=== PATIENT | female | born 1970 | race Caucasian/White ===

== ENCOUNTER → 2019-05-18 08:14 | Outpatient (CLI) | payer OTHER, SELFPAY ==
--- NOTE | 2019-05-18 | DI.MRI.S_ITS ---
PROCEDURE: MR PELVIS WO CON INDICATIONS: RADICULOPATHY, PAINFUL PARESTHESIA, HIP PAIN TECHNIQUE: Noncontrast axial and coronal T1 spin echo and STIR through the lumbosacral plexus region. Optional contrast may be given, followed by axial and coronal T1 spin echo with fat saturation through the sacral plexus. COMPARISON: None. FINDINGS: Image quality: Excellent. Lumbosacral plexus: Superior to the piriformis muscles, the pre-plexal structures appear normal, including the lumbosacral trunk and S1 root. Just anterior to the piriformis muscles, the sacral plexus proper demonstrates normal morphology (lumbosacral trunk, S1 to S3 nerve roots). Inferior to the piriformis muscles, the sciatic nerves appear normal. Soft tissues: The piriformis muscles appear symmetric in size. No presacral masses. Rectum appears normal in caliber and wall thickness. No pathologic free pelvic fluid. No visualized adenopathy by size criteria. Bilateral adnexal cysts are seen measures 2.2 x 2.3 cm on the left side and 1.4 x 1.6 cm in size on the right side. Bones: Marrow is normal in overall signal. Bilateral sacroiliac joints are preserved. No bony erosion or ankylosis. No fluid is seen within sacroiliac joints. IMPRESSION: 1. No gross abnormality is seen in bilateral sacral plexus. 2. Bilateral adnexal cysts as above. No pelvic free fluid. 3. Normal appearing bilateral sacroiliac joints. Dictated by: Tico Garcia M.D. on 05/18/2019 at 12:40 Approved by: Tico Garcia M.D. on 05/18/2019 at 12:55
--- NOTE | 2019-05-18 | DI.MRI.S_ITS ---
PROCEDURE: MR LUMBAR SPINE WO CON INDICATIONS: RADICULOPATHY, PAINFUL PARESTHESIA, HIP PAIN TECHNIQUE: Noncontrast sagittal T1 spin echo and T2 fast echo, sagittal STIR, axial T1 and T2 fast spin echo through the lumbar spine. In cases with scoliosis, additional coronal T2 fast spin echo may be performed. COMPARISON: None. FINDINGS: Image quality: Diagnostic, with note made of motion artifact. Alignment and Curvature: There is minimal retrolisthesis seen at the L2-L3 at L3-L4 levels. Bone Marrow: Marrow is of normal overall signal. No acute vertebral body compression fractures. Spinal Cord: Conus medullaris terminates at the T12-L1 level. Visualized cord demonstrates normal signal and size. Paraspinous Soft Tissues: No paravertebral masses. T12-L1: Normal appearance. L1-L2: No significant abnormality is seen. L2-L3: Moderate loss of disc height is seen. Loss of disc signal is seen. Moderate generalized disc bulge is seen. There is moderate bilateral neural foraminal narrowing seen, right worse than left. Moderate central canal narrowing is seen. L3-L4: The disc height and disk signal are well-preserved. Mild generalized disc bulge is seen. No significant neural foraminal or central canal narrowing can be seen. L4-L5: The disc height and disk signal are well-preserved. Moderate disc bulge is seen, which is eccentric to the right. There is a focal annular fissure seen posteriorly, as on series 2 image 4. Mild to moderate facet hypertrophy is seen. Moderate bilateral neural foraminal narrowing is seen. Mild central canal narrowing is seen. L5-S1: Normal appearance. IMPRESSION: Multiple levels of lumbar spine degenerative change are seen, which are overall most prominent at the L2-L3 and the L4-L5 levels. Dictated by: Rosalio Barth M.D. on 05/18/2019 at 10:12 Approved by: Rosalio Barth M.D. on 05/18/2019 at 10:15
--- NOTE | 2019-05-18 | DI.MRI.S_ITS ---
PROCEDURE: MR HIP LT WO CON INDICATIONS: RADICULOPATHY, PAINFUL PARESTHESIA, HIP PAIN TECHNIQUE: Noncontrast coronal T1 spin echo and STIR through the bony pelvis. Coronal and axial T2 fast spin echo with fat saturation, sagittal T1 spin echo, and oblique axial T2 fast spin echo with fat saturation through the hip. COMPARISON: [facility], MR, MR HIP RT WO CON, 05/18/2019, 8:35. FINDINGS: Image quality: Excellent. Bones and joints: Mild symmetric appearing bilateral superior hip joint space narrowing is seen. No marrow edema. No intraosseous lesions or fractures. No avascular necrosis of the femoral heads. The visualized lower lumbar spine appears normally aligned. Tendons and ligaments: There is suggestion of very low grade distal gluteus medius and minimus tendinosis at their insertions on left greater trochanter, without associated muscle atrophy. The nearby proximal iliotibial band also appears intact. The iliopsoas tendon appears intact, without adjacent bursal fluid collections or evidence for impingement syndrome. Thickened proximal left semimembranosus tendon origin at the ischial tuberosity is seen with small amount of surrounding soft tissue edema. The straight and reflected heads of the rectus femoris muscle origin appear intact, as well as the conjoint tendon. The ligamentum teres appears intact where visualized. Labrum and cartilage: The acetabular labrum appears intact in the absence of intra-articular contrast. Cartilage surface of the femoral head appears of normal thickness. The alpha angle of the femur is within normal limits at less than 55 degrees. Soft tissues: Visualized muscles demonstrate normal bulk and internal signal. Quadratus femoris muscle demonstrates no internal edema to suggest ischiofemoral impingement. The proximal sciatic neurovascular bundle appears normal adjacent to the hamstring tendons. No free pelvic fluid. Bladder wall thickness is normal. Genitourinary structures and bowel loops appear normal where visualized. IMPRESSION: 1. Mild superior left hip joint space narrowing. No marrow edema. No fracture or dislocation. No evidence of avascular necrosis. 2. Suggestion of very low-grade tendinosis and partial-thickness tear involving distal left gluteus medius and minimus tendons at their insertion on greater trochanter. 3. Tendinosis and very low-grade partial-thickness tear involving proximal left semimembranosus at its origin on ischial tuberosity. 4. No gross focal labral tear. Dictated by: Tico Garcia M.D. on 05/18/2019 at 12:24 Approved by: Tico Garcia M.D. on 05/18/2019 at 12:39
--- NOTE | 2019-05-18 | DI.MRI.S_ITS ---
PROCEDURE: MR HIP RT WO CON INDICATIONS: RADICULOPATHY, PAINFUL PARESTHESIA, HIP PAIN TECHNIQUE: Noncontrast coronal T1 spin echo and STIR through the bony pelvis. Coronal and axial T2 fast spin echo with fat saturation, sagittal T1 spin echo, and oblique axial T2 fast spin echo with fat saturation through the hip. COMPARISON: None. FINDINGS: Image quality: Excellent. Bones and joints: Symmetric appearing mild bilateral hip superior joint space narrowing is seen. No marrow edema. No intraosseous lesions or fractures. No avascular necrosis of the femoral heads. The visualized lower lumbar spine appears normally aligned. Tendons and ligaments: The gluteus medius and minimus tendons appear intact, without associated muscle atrophy. The nearby proximal iliotibial band also appears intact. The iliopsoas tendon appears there is mild right hip superior articulating space narrowing intact, without adjacent bursal fluid collections or evidence for impingement syndrome. The origin of the hamstring tendon is intact at the ischial tuberosity, as well as the associated sacrotuberous ligament. The straight and reflected heads of the rectus femoris muscle origin appear intact, as well as the conjoint tendon. The ligamentum teres appears intact where visualized. Labrum and cartilage: There is focal area of fluid signal involving the superior anterior right hip labrum concerning for focal labral tear. Cartilage surface of the femoral head appears of normal thickness. The alpha angle of the femur is within normal limits at less than 55 degrees. Soft tissues: Visualized muscles demonstrate normal bulk and internal signal. Quadratus femoris muscle demonstrates no internal edema to suggest ischiofemoral impingement. The proximal sciatic neurovascular bundle appears normal adjacent to the hamstring tendons. No free pelvic fluid. Bladder wall thickness is normal. Genitourinary structures and bowel loops appear normal where visualized. Small bilateral ovarian cysts are seen. IMPRESSION: 1. Mild right hip joint space narrowing. No marrow edema. No fracture or dislocation. No evidence of avascular necrosis. 2. Finding is concerning for tiny right hip superior anterior labral tear. 3. No gross muscle or tendon signal abnormality. Dictated by: Tico Garcia M.D. on 05/18/2019 at 12:18 Approved by: Tico Garcia M.D. on 05/18/2019 at 12:24
== END ==
PROVIDERS: PCP Internal Medicine; Visit Provider Internal Medicine
DX: M47.26 Other spondylosis with radiculopathy, lumbar region (principal); R20.2 Paresthesia of skin; M25.551 Pain in right hip; M25.552 Pain in left hip; N94.89 Other specified conditions associated with female genital organs and menstrual cycle
CPT/HCPCS: 72148; 72195; 73721

== ENCOUNTER → 2019-07-13 12:47 | Outpatient (CLI) | payer OTHER, SELFPAY ==
--- NOTE | 2019-07-13 | DI.MG.S_ITS ---
BILATERAL DIGITAL DIAGNOSTIC MAMMOGRAM 3D/2D WITH AUGMENTATION: 07/13/2019 CLINICAL: Right breast pain. Comparison is made to exams dated: 05/01/2017 mammogram, 10/25/2015 mammogram, and 06/06/2018 mammogram - [facility] [place]. The tissue of both breasts is heterogeneously dense. This may lower the sensitivity of mammography. Bilateral subpectoral silicone implants are intact. No significant masses, calcifications, or other findings are seen in either breast. IMPRESSION: INCOMPLETE: NEEDS ADDITIONAL IMAGING EVALUATION No mammographic evidence of malignancy in either breast. Implants are intact bilaterally. There is no abnormality seen in the right breast to correspond with the pain in the axillary tail, however, ultrasound is recommended for confirmation. This was performed immediately following this exam. This exam was interpreted at Station ID: [id number]. NOTE: For mammograms, a report in lay terms will be sent to the patient. Approximately 15% of breast malignancies will not be visualized mammographically. In the management of a palpable breast mass, a negative mammogram must not discourage biopsy of a clinically suspicious lesion. Electronically Signed By: Karla doan/:07/13/2019 14:04:09 letter sent: Need Ultrasound ACR BI-RADS Category 0: Incomplete [id number]
--- NOTE | 2019-07-13 14:51 | DI.US.S_ITS ---
LIMITED ULTRASOUND OF RIGHT BREAST: 07/13/2019 CLINICAL: Focal right breast pain. Comparison is made to exams dated: 07/13/2019 mammogram - [facility], 06/06/2018 mammogram, 06/06/2018 ultrasound, 05/01/2017 ultrasound, 05/01/2017 mammogram, and 10/25/2015 mammogram - [facility]. Ultrasound of the right breast upper outer quadrant was performed. Stoll scale images of the real-time examination were reviewed. No significant abnormalities were seen sonographically in the right breast. Specifically, no finding to correspond to the patient's upper outer quadrant pain. IMPRESSION: NEGATIVE There is no sonographic correlate to the patient's pain and no evidence of malignancy. Return to annual mammogram screening schedule is recommended. Findings and recommendations were conveyed to the patient in person at time of exam. This exam was interpreted at Station ID: [id number]. Electronically Signed By: Karla doan/:07/13/2019 14:06:33 letter sent: Normal Exam Ultrasound BI-RADS: 1 Negative
== END ==
PROVIDERS: PCP Internal Medicine; Visit Provider Internal Medicine
DX: R92.8 Other abnormal and inconclusive findings on diagnostic imaging of breast (principal); N64.4 Mastodynia; Z98.82 Breast implant status
CPT/HCPCS: 76642; 77066; G0279

== ENCOUNTER → 2020-01-19 08:40 | Outpatient (CLI) | payer OTHER, SELFPAY ==
--- NOTE | 2020-01-19 08:50 | DI.MRI.S_ITS ---
PROCEDURE: MR HEAD/BRAIN WO CON INDICATIONS: PAIN IN RT ARM/FOOT TECHNIQUE: Noncontrast axial T1 spin echo, axial T2 fast spin echo, sagittal and axial FLAIR, coronal T2 fast spin echo, axial gradient echo, axial diffusion and ADC through the brain. COMPARISON: None. FINDINGS: Image quality: Excellent. CSF Spaces: Basal cisterns are patent. No extra-axial fluid collections. Ventricles are normal in size and shape. Brain: No intracranial masses or hemorrhage. Stoll/white matter interface is normal. Brainstem appears normal. Diffusion-weighted images demonstrate no acute ischemic insult. No chronic ischemic insults. Normal intravascular flow voids are present. Skull and face: Calvarium has normal marrow signal. Orbits appear normal. Sinuses: Sinuses and mastoids are clear. There is mild leftward nasal septal deviation. IMPRESSION: No imaging explanation is found for this patient's presenting symptoms. Dictated by: Rosalio Barth M.D. on 01/19/2020 at 8:38 Approved by: Rosalio Barth M.D. on 01/19/2020 at 8:39
== END ==
PROVIDERS: PCP Internal Medicine; Referring Provider Neuromusculoskeletal Medicine & OMM; Visit Provider Neuromusculoskeletal Medicine & OMM
DX: M79.601 Pain in right arm (principal); M79.671 Pain in right foot; J34.2 Deviated nasal septum; R20.0 Anesthesia of skin
CPT/HCPCS: 70551

== ENCOUNTER → 2020-03-04 08:23 | Outpatient (CLI) | payer OTHER, SELFPAY ==
[2020-03-05 20:29] LABS: COVID19 Sendout Not Detected (Not Detect)
== END ==
PROVIDERS: PCP Internal Medicine; Visit Provider Physician Assistant
DX: Z01.812 Encounter for preprocedural laboratory examination (principal)
CPT/HCPCS: 87635

== ENCOUNTER 2020-03-07 08:10 | Outpatient (CLI) | payer OTHER, SELFPAY ==
[2020-03-07] VITALS (11 sets, daily range): BP systolic 118–142; BP diastolic 76–100; PULSE 61–79; RESP 15–16; TEMP 36.6; O2SAT 96–100
--- NOTE | 2020-03-07 08:11 | DI.RAD.S_ITS ---
PROCEDURE: PAIN L/S TRANSFORAMINAL INJECT INDICATIONS: SPONDYLOSIS COMPARISON: None. Fluoroscopic spot filming was performed to verify placement of a spinal needle at the L4-L5 level, as labeled on the films. Appropriate location of the needle tip was confirmed by injection of iodinated contrast. IMPRESSION: Intraprocedural examination within normal limits. Dictated by: Rosalio Barth M.D. on 03/07/2020 at 9:45 Approved by: Rosalio Barth M.D. on 03/07/2020 at 9:46
[2020-03-07] MEDS: MIDAZOLAM 5 MG/5 ML VIAL IV (09:28)
[2020-03-07] MEDS: fentaNYL 100 MCG/2 ML INJ 50 MCG IV (09:28)
[2020-03-07] MEDS: BETAMETHASONE 30 MG/5 ML MDV 6 MG INJ (09:33)
[2020-03-07] MEDS: IOPAMIDOL 15 ML VIAL 3 ML INJ (09:33)
[2020-03-07] MEDS: BUPIVACAINE 0.25% (PF) VIAL 2 ML INJ (09:33)
[2020-03-07] MEDS: DEXAMETHASONE 10 MG/ML VIAL 20 MG INJ (09:33)
--- NOTE | 2020-03-07 09:51 | P.PCN_ITS ---
Date/Time/Diagnoses Date of procedure: 03/07/20 Time of procedure: 09:51 Pre-procedure diagnosis: 1. FORAMINAL STENOSIS WITH LE SYMPTOMS Post-procedure diagnosis: same Procedure Notes Procedure: 1. FLUOROSCOPICALLY GUIDED CONTRAST CONTROLLED TRANSFORAMINAL EPIDURAL STEROID INJECTION - RIGHT L4/5 TFESI Indications: Blaire is referred by SUZETTE Starks for treatment of Foraminal Stenosis with Right LE Symptoms Physician: Mat King Total Fluoroscopy time (seconds): 9 Total sedation minutes: 17 Complications: none Procedure in detail & Post-procedure care: FINDINGS Foraminal Nerve Root Compression secondary to disc disease and facet hypertrophy DESCRIPTION OF PROCEDURE Following review of allergy and review of potential side effects and complications, including, but not necessarily limited to, infection, allergic reaction, local tissue breakdown, stroke, temporary or permanent nerve injury, paralysis, and possible , the patient indicated that the patient understood and agreed to proceed. An informed consent document was signed by the patient, witnessed by a nurse, and placed in the patient's chart. Additionally, other treatment options including medications, modalities, and physical therapy were reviewed with the patient. After review of previous anaesthesic history and IV conscious sedation the patient was deemed safe to proceed with today?s procedure with IV conscious sedation as ASA class II designation. Safety time-out was performed to confirm patient ID, procedure to be performed and site of procedure. IV sedation was accomplished with a combination of 4mg of Versed and 50mcg of Fentanyl was administered by the RN after DO order, titrated to patient comfort during the course of the procedure while the patient remained responsive to all verbal commands In the prone position following sterile prep and drape of the lumbar region, the Right L4/5 posterior neuroforamen was identified fluoroscopically. The skin was anesthetized via a 25-gauge 1.5-inch needle with 1% lidocaine solution. At this point, a 25-gauge 3.5-inch spinal needle was atraumatically introduced and advanced under fluoroscopic guidance through the posterior Right L4/5 neuroforamen to approximately the anterior aspect of the canal. Depth was confirmed on lateral view. Following negative aspiration, injection of approximately 1.5cc of Isovue 200 under live fluoroscopy in the AP view confirmed excellent flow along the nerve root, into the epidural space without vascular or intrathecal uptake observed Radiological data, including multiple fluoroscopic views of the lumbosacral spine, reveal a spinal needle at the right L4/5 posterior neuroforamen. Subsequent views show flow of contrast material flowing superiorly and inferiorly along the nerve root confirming epidural flow. Subsequently, a test dose of 1.5cc of 1% lidocaine solution was administered and patient was observed for two minutes for signs or symptoms of complications, including abdominal pain, shortness of breath, bilateral upper or lower extremity weakness, nausea and vomiting, prior to steroid injection. At this point, a total of 3cc or 20mg of dexamethasone and 6mg of betamethasone was injected without incident. The procedure tolerated the procedure well without signs or symptoms of complications prior to transfer to the recovery area continued monitoring without incident. The patient was then transferred to the recovery area where they were observed for an appropriate time after the injection. The patient reported a VAS score of 7 prior to the procedure and a post- procedure VAS of 0. POST OP INSTRUCTIONS The patient was provided a Pain Log to continue to record their response to the target-specific procedure prior to follow-up visit with their referring physician. Additionally, specific post-injection care instructions and a contact number to our office were provided if concerns arise regarding possible complications associated with the procedure are suspected.
--- NOTE | 2020-03-07 10:24 | PC.NURSE ---
[id number] pt returned to pre proc room via wc. Stable transfer from wc to chair, monitoring resumed
--- NOTE | 2020-03-07 15:42 | PC.NURSE ---
Pt tolerated procedure well. VSS upon transfer to post procedure room to LUCITA Calvin. All sedaiton meds given by Ele Arias. All other documented meds adminsitered by Dr King.
== END 2020-03-07 10:24 | disposition home or self-care (01) ==
LOC: RAD 08:10
PROVIDERS: PCP Internal Medicine; Referring Provider Physical Medicine & Rehabilitation; Visit Provider Physical Medicine & Rehabilitation
DX: M48.061 Spinal stenosis, lumbar region without neurogenic claudication (principal); M51.16 Intervertebral disc disorders with radiculopathy, lumbar region
CPT/HCPCS: 64483; 99152; 99153; J0702; J1100; J2250; J3010

== ENCOUNTER → 2020-05-30 09:09 | Outpatient (CLI) | payer OTHER, SELFPAY ==
--- NOTE | 2020-05-30 | DI.MRI.S_ITS ---
PROCEDURE: MR HIP RT W CON INDICATIONS: RIGHT HIP PAIN TECHNIQUE: After the administration of 10 mL of dilute intra-articular Gadolinium contrast, coronal STIR of the bony pelvis; coronal and oblique axial T1 spin echo with fat saturation, axial T2 fast spin echo with fat saturation, sagittal T1 spin echo with and without fat saturation of the involved hip. COMPARISON: None. FINDINGS: Image quality: Excellent. Bones and joints: No fracture identified. Sacroiliac joints are unremarkable in signal intensity. There is lower lumbar spondylosis and facet arthropathy. No pathologic hip joint effusion. No evidence of osteonecrosis. Tendons and ligaments: The gluteus medius and minimus tendons appear intact, without associated muscle atrophy. Proximal iliotibial band intact. Iliopsoas tendon intact. Origin of the hamstring tendon intact. The straight and reflected heads of the rectus femoris muscle origin appear intact Ligamentum teres appears intact where visualized. Labrum: Mild fraying of the anterosuperior labrum which is probably age-appropriate. No intrasubstance gadolinium signal intensity present. There is also minimal degeneration of the posterior segment of the labrum. The alpha angle of the femur is within normal limits at less than 55 degrees. Soft tissues: Visualized muscles demonstrate normal bulk and internal signal. Quadratus femoris muscle normal. Proximal sciatic neurovascular bundle appears normal adjacent to the hamstring tendons. No free pelvic fluid. Bladder normal. Genitourinary structures and bowel loops appear normal where visualized. IMPRESSION: Mild anterior superior labral degenerative fraying, without discrete tear. This finding could be age appropriate. Recommend clinical correlation. Elsewhere, no internal derangement Dictated by: Phani Handley M.D. on 05/30/2020 at 12:34 Approved by: Phani Handley M.D. on 05/30/2020 at 12:50
--- NOTE | 2020-05-30 09:13 | DI.RAD.S_ITS ---
PROCEDURE: FL HIP INJECTION MR/CT RT INDICATIONS: RIGHT HIP PAIN TECHNIQUE: The indications, alternatives, benefits, risks, and complications of the procedure were explained to the patient. Written informed consent was obtained and placed in the chart. The hip was examined fluoroscopically with the legs fixed in slight internal rotation, and a site for needle placement chosen for entry into the hip joint from an anterior approach. Care was taken to locate the common femoral artery and vein beforehand. The skin was prepped and draped in a sterile fashion, and 1% Lidocaine infiltrated from skin down to joint capsule. A spinal needle was inserted into the joint, and a small amount of iodinated contrast media injected to confirm intra-articular placement of the needle tip. This was followed by approximately 10 mL dilute solution of a gadolinium containing MR contrast agent. The needle was removed and a dressing was applied. The patient was given postprocedural instructions and sent to the MR suite for imaging. FINDINGS: A single fluoroscopic spot image demonstrates intra-articular location of injected iodinated contrast. IMPRESSION: Successful fluoroscopically guided administration of dilute Gadolinium solution into the hip joint for MR arthrogram. Dictated by: Michelle Simmons M.D. on 05/30/2020 at 11:20 Approved by: Michelle Simmons M.D. on 05/30/2020 at 11:20
== END ==
PROVIDERS: PCP Internal Medicine; Referring Provider Internal Medicine; Visit Provider Internal Medicine
DX: M25.551 Pain in right hip (principal)
CPT/HCPCS: 27093; 73722; 77002

== ENCOUNTER → 2020-08-16 13:27 | Outpatient (CLI) | payer OTHER, SELFPAY ==
--- NOTE | 2020-08-16 | DI.MG.S_ITS ---
BILATERAL DIGITAL DIAGNOSTIC MAMMOGRAM 3D/2D WITH AUGMENTATION: 08/16/2020 CLINICAL: Right breast exam. Comparison is made to exams dated: 07/13/2019 mammogram - [facility], 06/06/2018 mammogram, and 05/01/2017 mammogram - [facility] [place]. The tissue of both breasts is heterogeneously dense. This may lower the sensitivity of mammography. No significant masses, calcifications, or other findings are seen in either breast. IMPRESSION: INCOMPLETE: NEEDS ADDITIONAL IMAGING EVALUATION There is no abnormality seen in the right breast to correspond with the pain in the upper outer quadrant, however, ultrasound is recommended. This exam was interpreted at Station ID: [id number]. NOTE: For mammograms, a report in lay terms will be sent to the patient. Approximately 15% of breast malignancies will not be visualized mammographically. In the management of a palpable breast mass, a negative mammogram must not discourage biopsy of a clinically suspicious lesion. Electronically Signed By: Hima Javier M.D. [email or web address]:08/16/2020 14:28:22 ACR BI-RADS Category 0: Incomplete 3340F
--- NOTE | 2020-08-16 | DI.US.S_ITS ---
LIMITED ULTRASOUND OF RIGHT BREAST AND AXILLA: 08/16/2020 CLINICAL: Focal right breast pain. Comparison is made to exams dated: 08/16/2020 mammogram and 07/13/2019 [facility]. Real-time ultrasound of the right breast 9-10 o'clock, and axilla regions was performed on the areas of interest. No discrete cystic or solid mass lesion identified in the area of focal pain. No significant abnormalities were seen sonographically in the right axilla. IMPRESSION: NEGATIVE There is no sonographic evidence of malignancy. There are no abnormalities seen in the right breast to correspond with the pain at 9-10 o'clock, however, clinical followup is recommended. A 1 year screening mammogram is recommended. This exam was interpreted at Station ID: [id number]. Electronically Signed By: Hima dejesus/:08/16/2020 15:28:18 letter sent: Clinical Evaluation Ultrasound BI-RADS: 1 Negative
== END ==
PROVIDERS: PCP Internal Medicine; Referring Provider Internal Medicine; Visit Provider Internal Medicine
DX: R92.8 Other abnormal and inconclusive findings on diagnostic imaging of breast (principal); N64.4 Mastodynia
CPT/HCPCS: 76642; 77066; G0279

== ENCOUNTER → 2020-08-26 19:46 | Outpatient (CLI) | payer OTHER, SELFPAY ==
--- NOTE | 2020-08-26 | DI.RAD.S_ITS ---
PROCEDURE: XR CHEST 2V INDICATIONS: Asthma/Chest Pain TECHNIQUE: 2 views of the chest were acquired. COMPARISON: [facility], , CHEST 2 VIEW, 11/01/2007, 9:48. FINDINGS: Surgical changes and devices: None. Lungs and pleura: Lungs are clear. No pleural effusions or pneumothorax. Mediastinum: Mediastinal contours are normal. Heart size is normal. Bones and chest wall: No suspicious bony abnormalities. Soft tissues appear unremarkable. IMPRESSION: Normal for age, source of current asthma/chest pain symptoms is not seen. Dictated by: Nikita Becerra M.D. on 08/27/2020 at 10:12 Approved by: Nikita Becerra M.D. on 08/27/2020 at 10:13
== END ==
PROVIDERS: PCP Internal Medicine; Referring Provider Internal Medicine; Visit Provider Internal Medicine
DX: J45.909 Unspecified asthma, uncomplicated (principal); R07.9 Chest pain, unspecified
CPT/HCPCS: 71046

== ENCOUNTER → 2020-10-08 09:31 | Outpatient (CLI) | payer OTHER, SELFPAY ==
--- NOTE | 2020-10-08 09:32 | DI.MRI.S_ITS ---
PROCEDURE: MR LUMBAR SPINE WO CON INDICATIONS: Pain in left foot,Pain in leg, unspecified TECHNIQUE: Noncontrast sagittal T1 spin echo and T2 fast echo, sagittal STIR, axial T1 and T2 fast spin echo through the lumbar spine. In cases with scoliosis, additional coronal T2 fast spin echo may be performed. COMPARISON: [facility], MR, MR LUMBAR SPINE WO CON, 05/18/2019, 9:09. FINDINGS: Image quality: Excellent. Alignment and Curvature: No plain films are available for comparison, for numbering purposes. Thus, for the purposes of this examination, 5 lumbar type vertebral bodies will be presumed, as denoted on the montage panel. This should be confirmed and correlated with plain films, prior to any lumbar spinal intervention. There is loss of normal lumbar lordosis. There is mild grade 1 retrolisthesis of L2 on L3, L3 on L4, and L4 on L5. Bone Marrow: Marrow is of normal overall signal. No acute vertebral body compression fractures. Mild reactive signal within the endplates adjacent to the L2-L3 and L4-L5 intervertebral discs. Spinal Cord: Conus medullaris terminates at the mid L1 level. Visualized cord demonstrates normal signal and size. Paraspinous Soft Tissues: No paravertebral masses. T12-L1: Normal appearance. L1-L2: Mild disc desiccation and diffuse disc bulge. Mild facet and ligamentum flavum hypertrophy. Mild epidural lipomatosis. Mild canal stenosis. No foraminal stenosis. No change. L2-L3: Moderate disc height loss and desiccation. Moderate diffuse disc bulge. Mild facet and ligamentum flavum hypertrophy. Mild epidural lipomatosis. Mild canal stenosis. Mild bilateral foraminal stenosis. No change. L3-L4: Mild diffuse disc bulge. Mild facet and ligamentum flavum hypertrophy. Mild epidural lipomatosis. Mild canal stenosis. Mild bilateral foraminal stenosis. No change. L4-L5: Mild disc desiccation and diffuse disc bulge. Mild facet and ligamentum flavum hypertrophy. Mild epidural lipomatosis. Mild canal stenosis. Mild bilateral foraminal stenosis. No change. L5-S1: Normal appearance. IMPRESSION: 1. Multilevel degenerative disc and facet disease, as well as ligamentum flavum hypertrophy and epidural lipomatosis. 2. Mild multilevel canal and foraminal stenosis. No neural impingement. Approved by: Ladan Joseph M.D. on 10/08/2020 at 10:12
== END ==
PROVIDERS: PCP Internal Medicine; Referring Provider Internal Medicine; Visit Provider Internal Medicine
DX: M79.672 Pain in left foot (principal); M48.061 Spinal stenosis, lumbar region without neurogenic claudication; M51.36 Other intervertebral disc degeneration, lumbar region; M79.606 Pain in leg, unspecified
CPT/HCPCS: 72148

== ENCOUNTER → 2021-04-28 15:40 | Outpatient (CLI) | payer OTHER, SELFPAY ==
[2021-04-28 16:45] LABS: COVID19 -Nasal RAPID Negative (Negative)
== END ==
PROVIDERS: PCP Internal Medicine; Visit Provider Physical Medicine & Rehabilitation
DX: Z20.822 Contact with and (suspected) exposure to COVID-19 (principal)
CPT/HCPCS: 87635; C9803

== ENCOUNTER 2021-04-29 13:03 | Outpatient (CLI) | payer OTHER, SELFPAY ==
[2021-04-29] VITALS (7 sets, daily range): BP systolic 110–132; BP diastolic 68–84; PULSE 66–77; RESP 15–19; TEMP 36.9; O2SAT 97–100
--- NOTE | 2021-04-29 13:04 | DI.RAD.S_ITS ---
PROCEDURE: PAIN SI JOINT INJECTION JUDI COMPARISON: None. INDICATIONS: SACROILIAC DISORDER FINDINGS: Spot images demonstrating labeled right sacroiliac joint needle placement. Contrast is noted. IMPRESSION: Needle placement as above. Dictated by: Abril Sloan M.D. on 04/29/2021 at 15:11 Approved by: Abril Sloan M.D. on 04/29/2021 at 15:12
[2021-04-29] MEDS: MIDAZOLAM 5 MG/5 ML VIAL IV (13:35)
[2021-04-29] MEDS: fentaNYL 100 MCG/2 ML INJ 50 MCG IV (13:35)
[2021-04-29] MEDS: IOPAMIDOL 15 ML VIAL 3 ML INJ (13:39)
[2021-04-29] MEDS: BUPIVACAINE 0.5% (PF) VIAL 5 ML INJ (13:39)
[2021-04-29] MEDS: methylPREDNISolone acetate 80 MG/ML VIAL INJ (13:40)
--- NOTE | 2021-04-29 13:56 | PM.PROC.IR.1 ---
Date/Time/Diagnoses Date of procedure: 04/29/21 Time of procedure: 13:56 Pre-procedure diagnosis: Sacroiliac joint pain/DJD Post-procedure diagnosis: same Procedure Notes Procedure: Fluoroscopic guided contrast controlled bilateral sacroiliac joint injection Indications: Blaire is referred by SUZETTE Starks for treatment of right sacroiliac joint DJD Physician: Mat King Total Fluoroscopy time (seconds): 16 Total sedation minutes: 14 Complications: none Procedure in detail & Post-procedure care: Description of procedure Fluoroscopic guided, contrast controlled bilateral sacroiliac joint injection Following review of allergies and review of potential side effects and complications, including, but not necessarily limited to, infection, allergic reaction, local tissue breakdown, temporary as well as permanent nerve injury, paralysis, stroke and possible , the patient indicated that they understood and agreed to proceed. An informed consent was signed by the patient, witnessed by a nurse, and placed in the patient's chart. Additionally, other treatment options including modalities, medications, and physical therapy were reviewed with the patient. After review of previous anaesthesic history and IV conscious sedation the patient was deemed safe to proceed with today?s procedure with IV conscious sedation as ASA class II designation. Safety time-out was performed to confirm patient ID, procedure to be performed and site of procedure. IV sedation was accomplished with a combination of 2mg Versed and 50mcg of Fentanyl were administered by the RN after DO order, titrated to patient comfort during the course of the procedure while the patient remained responsive to all verbal commands In the prone position following sterile prep and drape of the pelvic region, the hyper lucency on in the inferior aspect of the sacroiliac joint was identified fluoroscopically the skin was anesthetized be a 25 gauge 1.5 inch needle with approximately 2cc of 1% lidocaine solution. At this point, a 22 gauge 3 in spinal needle was atraumatically introduced and advanced under fluoroscopic guidance into the inferior aspect of the right sacroiliac joint. Following negative aspiration, approximately 0.3cc of Isovue-300 was injected confirming intra-articular placement without vascular uptake. Radiographic data, including multiple fluoroscopic views of the pelvis, reveals a spinal needle in the sacroiliac joint hyper lucent zone. Subsequent view show flow contrast tear superiorly and inferiorly within the joint capsule without vascular intrathecal uptake. At this point a total of 1cc of 0.5% Marcaine was combined with 1cc of 80mg of depo medrol was injected without incident. Attention was then refocused the left sacroiliac joint where the procedure was replicated. The procedure tolerated the procedure well without signs or symptoms of complications prior to transfer to the recovery area continued monitoring without incident. The patient was then transferred to the recovery area with a bur observed for an appropriate time after the injection. The patient reverted a vas score of 7 prior to the procedure and post-procedure vas of 1. Postop instructions The patient was provided with a pain like to continue to record the patient's response to the target specific procedure prior to the patient's follow-up visit with the referring physician. Additionally, specific post injection care instructions and a contact number to our office were provided if concerns arise regarding the possible complications associated with procedure are suspected.
== END 2021-04-29 14:15 | disposition home or self-care (01) ==
LOC: RAD 13:03
PROVIDERS: PCP Internal Medicine; Referring Provider Physical Medicine & Rehabilitation; Visit Provider Physical Medicine & Rehabilitation
DX: M53.3 Sacrococcygeal disorders, not elsewhere classified (principal); M46.1 Sacroiliitis, not elsewhere classified
CPT/HCPCS: 27096; 99152; J1040; J2250; J3010

== ENCOUNTER → 2021-11-04 09:14 | Outpatient (CLI) | payer OTHER, SELFPAY ==
--- NOTE | 2021-11-04 | DI.MG.S_ITS ---
BILATERAL DIGITAL SCREENING MAMMOGRAM 3D/2D WITH CAD WITH AUGMENTATION: 11/04/2021 CLINICAL: Routine screening. Comparison is made to exams dated: 08/16/2020 mammogram, 07/13/2019 mammogram - [facility], 06/06/2018 mammogram, and 10/25/2015 mammogram - [facility] [place]. The tissue of both breasts is heterogeneously dense. This may lower the sensitivity of mammography. Current study was also evaluated with a Computer Aided Detection (CAD) system. Bilateral breast implants are stable and intact. No significant masses, calcifications, or other findings are seen in either breast. There has been no significant interval change. IMPRESSION: NEGATIVE There is no mammographic evidence of malignancy. A 1 year screening mammogram is recommended. This exam was interpreted at Station ID: [id number]. NOTE: For mammograms, a report in lay terms will be sent to the patient. Approximately 15% of breast malignancies will not be visualized mammographically. In the management of a palpable breast mass, a negative mammogram must not discourage biopsy of a clinically suspicious lesion. Electronically Signed By: Jay reza/anne marie:11/04/2021 12:17:47 letter sent: Normal Exam ACR BI-RADS Category 1: Negative 3341F
== END ==
PROVIDERS: PCP Internal Medicine; Referring Provider Internal Medicine; Visit Provider Internal Medicine
DX: Z12.31 Encounter for screening mammogram for malignant neoplasm of breast (principal); Z98.82 Breast implant status
CPT/HCPCS: 77063; 77067

== ENCOUNTER → 2021-12-15 13:03 | Outpatient (CLI) | payer OTHER, SELFPAY ==
[2021-12-15 15:50] LABS: COVID19 -Nasal RAPID Negative (Negative)
== END ==
PROVIDERS: PCP Internal Medicine; Visit Provider Physical Medicine & Rehabilitation
DX: Z20.822 Contact with and (suspected) exposure to COVID-19 (principal)
CPT/HCPCS: 87635; C9803

== ENCOUNTER 2021-12-16 09:13 | Outpatient (CLI) | payer OTHER, SELFPAY ==
[2021-12-16] VITALS (11 sets, daily range): BP systolic 120–151; BP diastolic 78–96; PULSE 68–81; RESP 15–20; TEMP 36.4; O2SAT 98–100
--- NOTE | 2021-12-16 09:45 | DI.RAD.S_ITS ---
PROCEDURE: PAIN C/T FACET INJ/BLK 1ST L INDICATIONS: STENOSIS COMPARISON: [facility], XA, PAIN SI JOINT INJECTION JUDI, 04/29/2021, 13:40. FINDINGS: Fluoroscopic spot filming was performed to verify placement of spinal needles on the right side at the C4-C5, C5-C6, and C6-C7 levels, as labeled on the films. Appropriate location of the needle tips was confirmed by injection of iodinated contrast. IMPRESSION: Intraprocedural examination demonstrating appropriate positions of the needles. Dictated by: Rosalio Barth M.D. on 12/16/2021 at 11:10 Approved by: Rosalio Barth M.D. on 12/16/2021 at 11:11
[2021-12-16] MEDS: MIDAZOLAM 2 MG/2 ML VIAL IV (10:08)
[2021-12-16] MEDS: MIDAZOLAM 2 MG/2 ML VIAL ×2 (10:12→10:23)
[2021-12-16] MEDS: IOPAMIDOL 15 ML VIAL 3 ML INJ (10:14)
[2021-12-16] MEDS: BUPIVACAINE 0.5% (PF) VIAL 30 ML (10:14)
[2021-12-16] MEDS: DEXAMETHASONE 10 MG/ML VIAL 30 MG INJ (10:15)
--- NOTE | 2021-12-16 10:33 | P.PCN_ITS ---
Date/Time/Diagnoses Date of procedure: 12/16/21 Time of procedure: 10:33 Pre-procedure diagnosis: 1. FACET ARTHROPATHY 2. AXIAL NECK PAIN Post-procedure diagnosis: same Procedure Notes Procedure: 1. FLUOROSCOPICALLY GUIDED, CONTRAST-CONTROLLED RIGHT C4/5, C5/6 AND C6/7 FACET JOINT INJECTIONS WITH CONSCIOUS SEDATION. Indications: Blaire is referred by SUZETTE Starks for treatment of Axial Neck Pain Physician: Mat King Total Fluoroscopy time (seconds): 24 Total sedation minutes: 20 Complications: none Procedure in detail & Post-procedure care: DESCRIPTION OF PROCEDURE Fluoroscopically guided, contrast-controlled right C4/5, C5/6 and C6/7 facet joint injections with conscious sedation. Following review of allergy and review of potential side effects and complications, including, but not necessarily limited to, infection, allergic reaction, local tissue breakdown, stroke, temporary or permanent nerve injury and paralysis, the patient indicated that the patient understood and agreed to p roceed. An informed consent document was signed by the patient, witnessed by a nurse, and placed in the patient's chart. Additionally, other treatment options including medications, modalities, and physical therapy were reviewed with the patient. After review of previous anaesthesic history and IV conscious sedation the patient was deemed safe to proceed with today?s procedure with IV conscious sedation as ASA class II designation. Safety time-out was performed to confirm patient ID, procedure to be performed and site of procedure. IV sedation was accomplished with a combination of 6mg of Versed was administered by the RN after DO order, titrated to patient comfort during the course of the procedure while the patient remained responsive to all verbal commands In the prone position, following sterile prep and drape of the cervical spine region, the posterior aspect of the right C4/5, C5/6 and C6/7 facet joints were identified fluoroscopically. The skin was anesthetized via a 25-gauge 1.5-inch needle with 1% lidocaine solution into the corresponding facet joints. At this point, a 25-gauge 2.5-inch spinal needle was atraumatically introduced and advanced under fluoroscopic guidance into the corresponding facet joints. Following negative aspiration, injections of approximately 0.2-cc of Isovue 200 confirmed interarticular placement without vascular uptake. At this point, a total of 1cc including 0.5cc or 5mg of dexamethasone combined with 0.5cc of 1% lidocaine solution was injected without complication into each of the corresponding facet joints. The procedure tolerated the procedure well without signs or symptoms of complications prior to transfer to the recovery area continued monitoring without incident. The patient was then transferred to the recovery area where they were observed for an appropriate period of time after the injection. The patient reported a VAS score of 8 prior to the procedure and a post- procedure VAS of 1. POST OP INSTRUCTIONS They were provided a Pain Log to continue to record their response to the target-specific procedure prior to their follow-up visit with their referring physician. Additionally, specific post-injection care instructions and a contact number to our office were provided if concerns arise regarding possible complications associated with the procedure are suspected.
== END 2021-12-16 11:10 | disposition home or self-care (01) ==
PROVIDERS: PCP Internal Medicine; Referring Provider Physical Medicine & Rehabilitation; Visit Provider Physical Medicine & Rehabilitation
DX: M47.812 Spondylosis without myelopathy or radiculopathy, cervical region (principal)
CPT/HCPCS: 64490; 64491; 64492; 99152; J1100; J2250

== ENCOUNTER → 2022-04-17 13:00 | Outpatient (CLI) | payer OTHER, SELFPAY ==
--- NOTE | 2022-04-17 13:07 | DI.RAD.S_ITS ---
PROCEDURE: XR FOOT RT MIN 3V INDICATIONS: Right foot and ankle pain TECHNIQUE: 3 views of the foot were acquired. COMPARISON: None. FINDINGS: Bones: No fractures or dislocations. No suspicious bony lesions. There are degenerative changes involving the right 1st metatarsophalangeal joint predominantly over the head of the 1st metatarsal where there is mild subchondral cystic change. Soft tissues: No tibiotalar joint effusion. Achilles tendon appears normal. IMPRESSION: Right foot without acute fracture or dislocation. 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 Dictated by: Mikal Gregg M.D. on 04/17/2022 at 14:19 Approved by: Mikal Gregg M.D. on 04/17/2022 at 14:22
--- NOTE | 2022-04-17 13:30 | DI.RAD.S_ITS ---
PROCEDURE: XR ANKLE RT MIN 3V INDICATIONS: ANKLE PAIN TECHNIQUE: 3 views of the ankle were acquired. COMPARISON: None. FINDINGS: Bones: No acute fractures or dislocations. Ankle mortise is normally aligned. No suspicious bony lesions. Soft tissues: No tibiotalar joint effusion. Achilles tendon appears normal. IMPRESSION: Right ankle without acute fracture or dislocation. No significant degenerative change. If there are persistent symptoms or clinical suspicion for pathology, then repeat radiographs or advanced imaging (CT or MRI) may be considered for further evaluation. Dictated by: Mikal Gregg M.D. on 04/17/2022 at 14:18 Approved by: Mikal Gregg M.D. on 04/17/2022 at 14:19
== END ==
PROVIDERS: PCP Internal Medicine; Referring Provider Family Medicine; Visit Provider Family Medicine
DX: M79.671 Pain in right foot (principal); M19.071 Primary osteoarthritis, right ankle and foot; M25.571 Pain in right ankle and joints of right foot
CPT/HCPCS: 73610; 73630

== ENCOUNTER → 2022-09-02 09:12 | Outpatient (CLI) | payer OTHER, SELFPAY ==
[2022-09-02 10:41] LABS: COVID19 -Nasal RAPID POSITIVE (Negative)
== END ==
PROVIDERS: PCP Internal Medicine; Visit Provider Surgery
DX: Z01.812 Encounter for preprocedural laboratory examination (principal); U07.1 COVID-19; Z20.822 Contact with and (suspected) exposure to COVID-19
CPT/HCPCS: 87635; C9803

== ENCOUNTER → 2022-11-23 07:32 | Outpatient (CLI) | payer OTHER, SELFPAY ==
--- NOTE | 2022-11-23 | DI.MG.S_ITS ---
BILATERAL DIGITAL SCREENING MAMMOGRAM 3D/2D WITH CAD WITH AUGMENTATION: 11/23/2022 CLINICAL: Routine screening. Comparison is made to exams dated: 11/04/2021 mammogram - [facility], 05/01/2017 mammogram, and 06/06/2018 mammogram - [facility]. Both breasts are heterogeneously dense, which may obscure small masses (category c / 51-75% glandular tissue). Current study was also evaluated with a Computer Aided Detection (CAD) system. Bilateral breast implants are stable and intact. No significant masses, calcifications, or other findings are seen in either breast. There has been no significant interval change. IMPRESSION: NEGATIVE There is no mammographic evidence of malignancy. A 1 year screening mammogram is recommended. Based on the Tyrer Cuzick model (a risk assessment model) the patient's lifetime risk is 11.9% and her 10 year risk is 2.9%. According to the ACR, ACS, and NCCN guidelines, an annual breast MRI exam along with mammogram is recommended if the patient's lifetime risk is 20% or greater. This exam was interpreted at Station ID: [id number]. NOTE: For mammograms, a report in lay terms will be sent to the patient. Approximately 15% of breast malignancies will not be visualized mammographically. In the management of a palpable breast mass, a negative mammogram must not discourage biopsy of a clinically suspicious lesion. Electronically Signed By: Jay reza/anne marie:11/23/2022 09:05:05 letter sent: Normal Exam ACR BI-RADS Category 1: Negative 3341F
== END ==
PROVIDERS: PCP Internal Medicine; Referring Provider Internal Medicine; Visit Provider Internal Medicine
DX: Z12.31 Encounter for screening mammogram for malignant neoplasm of breast (principal)
CPT/HCPCS: 77063; 77067

== ENCOUNTER 2022-11-26 07:21 | Day surgery (SDC) | payer OTHER, SELFPAY ==
[2022-11-26] MEDS: LACTATED RINGERS 1,000 ML 42 ML IV (07:35)
[2022-11-26 08:01] VITALS: BP 148/84; PULSE 80; RESP 18; TEMP 36.2; O2SAT 100; BMI 22.6
--- NOTE | 2022-11-26 08:37 | P.HP_ITS ---
History of Present Illness History of Present Illness Date Patient Seen: 11/26/22 Time Patient Seen: 08:37 Chief complaint: Colonoscopy Narrative: Lexie is a 52-year-old woman who is here for colonoscopy. She has never had 1 before. No known family history of colon cancer. [facility] Medical History Cervical disc disorder at C5-C6 level with radiculopathy Facet arthropathy, cervical Femoral acetabular impingement Herniated nucleus pulposus, L2-3 Herniated nucleus pulposus, L4-5 Impingement syndrome of left shoulder Rheumatoid arthritis Sacral dysfunction Surgical History S/P hip arthroscopy Family History Father Lung cancer Diabetes mellitus Heart attack Mother Hypertension Grandmother Stroke Grandfather Stroke Social History (Updated 09/13/19 @ 08:54 by Cindi Shannon RN) household members: spouse Smoking Status: Never smoker alcohol intake: current Meds Home Medications and Allergies Home Medications Medication Instructions Recorded Confirmed Type THYROID (#ARMOUR THYROID) 30 mg PO Q DAY ##30 02/29/12 11/26/22 Rx albuterol sulfate 90 mcg/actuation 2 puff inhalation Q4-6H PRN short 09/13/19 11/26/22 History aerosol inhaler (Ventolin HFA) cholecalciferol (vitamin D3) 125 5,000 unit PO DAILY 09/13/19 11/26/22 History mcg (5,000 unit) capsule collagen ultra 2 each PO DAILY 09/13/19 11/26/22 History hydroxychloroquine 200 mg tablet 200 mg PO DAILY 09/13/19 11/26/22 History (Plaquenil) levothyroxine 25 mcg capsule 25 mcg PO DAILY 09/13/19 11/26/22 History montelukast 10 mg tablet 10 mg PO DAILY 09/13/19 11/26/22 History multivitamin 1 tab PO DAILY 09/13/19 11/26/22 History folic acid 1 mg tablet 1 mg PO DAILY 04/21/21 11/26/22 History methotrexate sodium 10 mg tablet 10 mg PO QWEEK 04/21/21 11/26/22 History tofacitinib 10 mg tablet (Xeljanz) 10 mg PO DAILY 11/26/22 11/26/22 History Allergies Allergy/AdvReac Type Severity Reaction Status Date / Time Sulfa (Sulfonamide Allergy Unknown Verified 11/26/22 07:38 Antibiotics) Exam Vital Signs (past 8 hours): - 11/26/22 08:01 Temperature 97.2 F L Pulse Rate 80 Respiratory Rate 18 Blood Pressure 148/84 H Pulse Oximetry 100 Oxygen Delivery Method Room Air Oxygen Delivery Method Room Air Const General: healthy appearing Assessment & Plan Assessment and plan (1) Colon cancer screening: Status: Acute Plan Lexie is a 52-year-old woman who is here for colonoscopy for colon cancer screening. She is never had 1 before. No known family history. We reviewed risks and benefits and will proceed with a colonoscopy.
[2022-11-26 09:06] VITALS: BP 92/57; PULSE 71; RESP 16; TEMP 36.1; O2SAT 100
--- NOTE | 2022-11-26 09:06 | P.OP.COLON_ITS ---
Operative Date/Time/Diagnoses Date of procedure: 11/26/22 Time of procedure: 09:06 Pre-op diagnosis: Colon cancer screening Post-op diagnosis: same Procedure & Clinicians Study performed: Colonoscopy Same procedure as scheduled: Yes Surgeon: Alex Cronin Procedure Notes Procedure in detail: Surgeon: Alex Cronin MD Anesthesia: Ila Aguilar MD Procedure: The patient was brought to the endoscopy suite, placed in left lateral decubitus position. The patient was connected to monitoring devices. A time-out was performed. Sedation was administered. Once the patient was adequately sedated, a digital rectal exam was performed and was normal. The scope was then inserted and advanced to the cecum where the appendiceal orifice was identified and photographed. The scope was then slowly withdrawn over greater than 6 minutes. The mucosa was thoroughly inspected. No polyps were se en. The scope was retroflexed in the rectum. No abnormalities were seen. The scope was straightened and removed. The patient was awakened and brought to recovery. Scope withdrawal time: 9 minute Sedation time: 18 minutes EBL: 0 Findings: Normal colon Post-procedure Recommendations: Colonoscopy in 10 years Disposition: PACU
[2022-11-26 09:11] VITALS: BP 105/81; PULSE 71; RESP 20; O2SAT 100
[2022-11-26 09:16] VITALS: BP 114/75; PULSE 73; RESP 14; O2SAT 100
[2022-11-26 09:21] VITALS: BP 103/76; PULSE 69; RESP 15; O2SAT 100
[2022-11-26 09:30] VITALS: BP 111/71; PULSE 70; RESP 14; O2SAT 100
== END 2022-11-26 09:53 | disposition home or self-care (01) ==
PROVIDERS: PCP Internal Medicine; Referring Provider Surgery; Visit Provider Surgery
PROC: 0DJD8ZZ Inspection of Lower Intestinal Tract, Via Natural or Artificial Opening Endoscopic (ICD-10-PCS; CPT 45378; principal; 2022-11-26 08:15)
DX: Z12.11 Encounter for screening for malignant neoplasm of colon (principal)
CPT/HCPCS: 45378; J2704; J3010

== ENCOUNTER → 2022-12-11 11:36 | Outpatient (CLI) | payer OTHER, SELFPAY ==
--- NOTE | 2022-12-11 11:38 | DI.RAD.S_ITS ---
PROCEDURE: XR CERVICAL SPINE 4V OR 5V INDICATIONS: NECK PAIN TECHNIQUE: 5 views of the cervical spine acquired. COMPARISON: Outside Facility, RG, MRI C-SPINE W/O CONTRAST, 10/10/2018, 9:46. FINDINGS: Bones: No acute fractures or dislocations to the T3 level. Normal alignment. Craniocervical junction is intact. No acute compression fracture seen. Severe degenerative changes noted at C4-5. Associated facet arthropathy. Significant disc space loss at C4-5 with suggestion of partial fusion across the vertebral bodies. Oblique images demonstrate mild bony foraminal stenosis at the left C6-7 as well as the right C4-5 and C5-6 levels. Soft tissues: No prevertebral soft tissue swelling. IMPRESSION: Cervical spine without acute fracture or traumatic malalignment. Severe spondylitic changes at C4-5 with associated bilateral bony foraminal stenosis more severe on the right. Dictated by: Mikal Gregg M.D. on 12/11/2022 at 13:22 Approved by: Mikal Gregg M.D. on 12/11/2022 at 13:32
== END ==
PROVIDERS: PCP Internal Medicine; Referring Provider Physical Medicine & Rehabilitation; Visit Provider Physical Medicine & Rehabilitation
DX: M50.122 Cervical disc disorder at C5-C6 level with radiculopathy (principal); M47.22 Other spondylosis with radiculopathy, cervical region; M48.02 Spinal stenosis, cervical region
CPT/HCPCS: 72050

== ENCOUNTER → 2022-12-21 09:14 | Outpatient (CLI) | payer OTHER, SELFPAY ==
--- NOTE | 2022-12-21 09:15 | DI.MRI.S_ITS ---
PROCEDURE: MR CERVICAL SPINE WO CON INDICATIONS: Cervical radiculopathy TECHNIQUE: Noncontrast sagittal T1 spin echo and T2 fast spin echo, sagittal STIR, foraminal oblique sagittal T2 fast spin echo, and axial gradient echo or T2 fast spin echo through the cervical spine. COMPARISON: [facility], MR, MR HEAD/BRAIN WO CON, 01/19/2020, 8:53. [facility], CR, XR CERVICAL SPINE 4V OR 5V, 12/11/2022, 11:34. FINDINGS: Image quality: Excellent. Alignment and Curvature: There is normal bony alignment. Bone Marrow: Marrow demonstrates normal overall signal. Spinal Cord: Visualized spinal cord has normal size and signal. No cerebellar tonsillar herniation. Paraspinous Soft Tissues: No paravertebral masses. Prevertebral soft tissues are normal in thickness. C2-C3: The disc height is well-preserved. Loss of disc signal is seen at this level. A mild degree of generalized disc osteophyte complex is seen. No neural foraminal narrowing is seen. Minimal central canal narrowing is seen. C3-C4: The disc height is well-preserved. Loss of disc signal is seen at this level. A mild degree of generalized disc osteophyte complex is seen. Mild to moderate facet hypertrophy is seen. There is [id number] bilateral neural foraminal narrowing. No significant central canal narrowing is seen. C4-C5: At least moderate loss of disc height and disc signal can be seen. At least moderate disc osteophyte complex is seen, which is eccentric to the right. There is also a central/left disc osteophyte protrusion seen, as on series 5, image 23. There is at least moderate right-sided and moderate left-sided facet hypertrophy. There is moderate to severe right-sided and moderate left-sided neural foraminal narrowing. Mild to moderate central canal narrowing is seen. C5-C6: Mild loss of disc height is seen. Loss of disc signal is seen. Mild to moderate disc osteophyte complex is seen, which is eccentric to the right, with a right subarticular/right foraminal disc osteophyte protrusion, as on series 5, image 26. There is moderate to severe right-sided and [id number] left-sided neural foraminal narrowing. Minimal central canal narrowing is seen. C6-C7: Moderate loss of disc height is seen. Loss of disc signal is seen. Mild to moderate disc osteophyte complex is seen. Mild facet joint hypertrophy is seen. There is moderate to severe bilateral neural foraminal narrowing seen. Minimal central canal narrowing is seen. C7-T1: The disc height and disk signal are relatively well-preserved. A mild degree of generalized disc osteophyte complex is seen. Mild to moderate facet hypertrophy is seen. There is mild right-sided and minimal left-sided neural foraminal narrowing. No significant central canal narrowing is seen. IMPRESSION: Multiple levels cervical spine degenerative change can be seen, which are overall worst at the C4-C5 level. Several levels of significant neural foraminal narrowing can be seen, including moderate to severe bilateral neural foraminal narrowing at C6-C7. Dictated by: Rosalio Barth M.D. on 12/21/2022 at 11:22 Approved by: Rosalio Barth M.D. on 12/21/2022 at 11:42
== END ==
PROVIDERS: PCP Internal Medicine; Referring Provider Physical Medicine & Rehabilitation; Visit Provider Physical Medicine & Rehabilitation
DX: M50.122 Cervical disc disorder at C5-C6 level with radiculopathy (principal); M47.22 Other spondylosis with radiculopathy, cervical region; M48.02 Spinal stenosis, cervical region; G56.23 Lesion of ulnar nerve, bilateral upper limbs
CPT/HCPCS: 72141

== ENCOUNTER → 2022-12-24 12:17 | Outpatient (CLI) | payer OTHER, SELFPAY | PROVIDERS: Family Provider Internal Medicine; PCP Internal Medicine; Referring Provider Physical Medicine & Rehabilitation; Visit Provider Physical Medicine & Rehabilitation | DX: G56.23 Lesion of ulnar nerve, bilateral upper limbs (principal); M50.122 Cervical disc disorder at C5-C6 level with radiculopathy | CPT/HCPCS: 95885; 95886; 95912 ==

== ENCOUNTER 2023-03-25 07:45 | Outpatient (CLI) | payer OTHER, SELFPAY ==
[2023-03-25] VITALS (7 sets, daily range): BP systolic 114–146; BP diastolic 71–85; PULSE 62–75; RESP 12–30; TEMP 36.4; O2SAT 96–100
--- NOTE | 2023-03-25 08:31 | DI.RAD.S_ITS ---
PROCEDURE: PAIN C/T INTERLAMINAR INJECT INDICATIONS: SPINAL STENOSIS COMPARISON: [facility], CR, XR CERVICAL SPINE 4V OR 5V, 12/11/2022, 11:34. [facility], MR, MR CERVICAL SPINE WO CON, 12/21/2022, 10:04. FINDINGS: Fluoroscopic spot filming was performed to verify placement of a spinal needle at the C6-C7 level, as labeled on the films. Appropriate location of the needle tip was confirmed by injection of iodinated contrast. IMPRESSION: No significant intraprocedural abnormality. Dictated by: Rosalio Barth M.D. on 03/25/2023 at 13:31 Approved by: Rosalio Barth M.D. on 03/25/2023 at 13:31
[2023-03-25] MEDS: SODIUM CHLORIDE 0.9% 500 ML 1000 ML IV (08:55)
[2023-03-25] MEDS: fentaNYL 100 MCG/2 ML INJ 50 MCG IV (08:57)
[2023-03-25] MEDS: MIDAZOLAM 2 MG/2 ML VIAL IV (08:57)
[2023-03-25] MEDS: IOPAMIDOL 15 ML VIAL 3 ML INJ (09:00)
[2023-03-25] MEDS: DEXAMETHASONE 10 MG/ML VIAL 20 MG INJ (09:00)
[2023-03-25] MEDS: BUPIVACAINE 0.25% (PF) VIAL 2 ML INJ (09:01)
--- NOTE | 2023-03-25 09:14 | P.PCN_ITS ---
Date/Time/Diagnoses Date of procedure: 03/25/23 Time of procedure: 09:14 Pre-procedure diagnosis: 1. CERVICAL STENOSIS, 2. CERVICAL HNP WITH UPPER EXTREMITY RADICULAR FEATURES Post-procedure diagnosis: same Procedure Notes Procedure: 1. FLUORSCOPICALLY GUIDED CONTRAST CONTROLLED INTERLAMINAR EPIDURAL STEROID INJECTION - C6/7 TL OLIVE Indications: Blaire is referred by SUZETTE Starks for treatment of Cervical HNP with Upper Extremity Paresthesias. Physician: Mat King Total Fluoroscopy time (seconds): 25 Total sedation minutes: 10 Complications: none Procedure in detail & Post-procedure care: FINDINGS Cervical Stenosis due to disc deterioration and nerve root irritation and nerve root irritation DESCRIPTION OF PROCEDURE Fluoroscopically guided, contrast-controlled C6/7 translaminar epidural steroid injection with conscious sedation. Following review of allergy and review of potential side effects and complications, including, but not necessarily limited to, infection, allergic reaction, local tissue breakdown, temporary as well as permanent nerve injury, stroke, paralysis, and possible , the patient indicated that patient understood and agreed to proceed. An informed consent document was signed by the patient, witnessed by a nurse, and placed in the patient's chart. Additionally, other treatment options including modalities, medications, and physical therapy were reviewed with the patient. After review of previous anaesthesic history and IV conscious sedation the patient was deemed safe to proceed with today?s procedure with IV conscious sed ation as ASA class II designation. Safety time-out was performed to confirm patient ID, procedure to be performed and site of procedure. IV sedation was accomplished with a combination of 2mg of Versed and 50mcg of Fentanyl administered by the RN after DO order, titrated to patient comfort during the course of the procedure while the patient remained responsive to all verbal commands. In the prone position, following sterile prep and drape of the cervical region, the C6/7 translaminar space was identified fluoroscopically. The skin was anesthetized via a 25-gauge 1.5-inch needle with 1% lidocaine solution. At this point, a 25-gauge, 2.5-inch short bevel spinal needle was atraumatically introduced and advanced under fluoroscopic guidance into epidural space at the C6/7 translaminar space. Depth was confirmed on lateral view. Radiological data, including multiple fluoroscopic views of the cervical spine, reveal a spinal needle at the C6/7 translaminar space. Lateral views then show placement of the needle in the epidural space. Subsequent views show contrast material flowing superiorly and inferiorly in the epidural space. DSA fluoroscopy with live contrast injection, once again, confirmed no vascular or intrathecal uptake. At this point, using loss of resistance technique with saline and air, the epidural space was entered. Following negative aspiration, injection of approximately 1.5 cc of Isovue-200 with live fluoroscopy in the AP view confirmed epidural flow in the epidural space without vascular or intrathecal uptake observed. Subsequently, a test dose of 1 cc of 1% lidocaine solution was injected and patient was observed for two minutes without signs or symptoms of complications, including abdominal pain, shortness of breath, bilateral upper or lower extremity weakness, nausea and vomiting, prior to steroid injection. At this point, 2cc or 20mg of dexamethasone was then injected without incident. The patient tolerated the procedure well without signs or symptoms of complications prior to being transferred to the recovery area for further monitoring, The patient was then transferred to the recovery area where they were observed for an appropriate period of time after the injection. The patient reported a VAS score of 6 prior to the procedure and a post-procedure VAS of 0. POST OP INSTRUCTIONS The patient was provided a Pain Log to continue to record their response to the target-specific procedure prior to follow-up visit with the referring provider. Additionally, specific post-injection care instructions and a contact number to our office were provided if concerns arise regarding possible complications associated with the procedure are suspected.
--- NOTE | 2023-03-25 09:19 | PC.NURSE ---
verbal order from Dr brooks to give NS 0.9% 500ml IV bolus. started prior to procedure.
--- NOTE | 2023-03-25 09:30 | PC.NURSE ---
Patient receiving IVF bolus - infusing without issue. Patient ok to discharge after IVF infused.
--- NOTE | 2023-03-25 10:01 | PC.NURSE ---
IVF infused. Patient met criteria for discharge.
== END 2023-03-25 09:55 | disposition home or self-care (01) ==
PROVIDERS: Family Provider Internal Medicine; PCP Internal Medicine; Referring Provider Physical Medicine & Rehabilitation; Visit Provider Physical Medicine & Rehabilitation
DX: M48.02 Spinal stenosis, cervical region (principal); M50.123 Cervical disc disorder at C6-C7 level with radiculopathy
CPT/HCPCS: 62321; 99152; J1100; J2250; J3010; J3490

== ENCOUNTER → 2023-03-31 12:31 | Outpatient (CLI) | payer OTHER, SELFPAY ==
--- NOTE | 2023-03-31 | DI.MRI.S_ITS ---
BREAST MRI OF BOTH BREASTS: 03/31/2023 CLINICAL: Mastodynia. PROCEDURE: MR BREAST BI WO/W CON INDICATIONS: Mastodynia. Additional history: Right superior lateral breast pain radiating to the axilla. TECHNIQUE: The patient was placed prone in a dedicated breast imaging coil. Precontrast axial STIR and 3D FLASH without fat saturation sequences were obtained. Both before and after bolus injection of contrast, sequential 1-minute axial 3D FLASH with fat saturation sequences for 3 time points, with subtraction images and maximum intensity projections (MIP's) generated. Delayed sagittal FLASH images with fat saturation were also obtained. CONTRAST: 20 cc ProHance IV contrast. Computer-aided detection, including computer algorithm analysis of MRI image data for lesion detection and characterization, pharmacokinetic analysis, with further physician review for interpretation, was performed. COMPARISON: [facility], , MM SCREENING MAMMO IMPLANT BI, 11/23/2022, 7:50. MG, MM SCREENING MAMMO IMPLANT BI, 11/04/2021, 9:37. US, US BREAST RT LIMITED, 08/16/2020, 15:02. MG, MM DIAGNOSTIC MAMMO IMPLANT BI, 08/16/2020, 14:06. FINDINGS: Image quality: Excellent. There is mild background parenchymal enhancement. Right breast: No mass or suspicious enhancement. Retropectoral silicone implant with subcapsular line sign and noose sign, (2/32, 22). This is most consistent with intracapsular implant rupture. No extracapsular silicone identified. Left breast: No mass or suspicious enhancement. Retropectoral silicone implant is intact. Miscellaneous: No enlarged lymph nodes. IMPRESSION: BENIGN No mass or suspicious enhancement. No enlarged lymph nodes. Findings most consistent with right breast intracapsular implant rupture. No extracapsular implant rupture. Left breast implant is intact. BIRADS 2 A 1 year screening mammogram is recommended. 11/24/2023. COMMENT: The imaging literature indicates that a negative contrast breast MRI examination has a high sensitivity and a moderate specificity for detecting and excluding invasive carcinomas to a detection threshold of 3-5 mm; nonetheless, appropriate clinical and mammographic follow-up are recommended. MRI is not sensitive for detecting DCIS (ductal carcinoma in situ) and may not detect large invasive neoplasms that show only minimal enhancement such as mucinous carcinoma. If there are suspicious calcifications or clinically worrisome palpable masses, then biopsy should still be z This exam was interpreted at Station ID: [id number]. Electronically Signed By: Jay Shaffer M.D. slc/:03/31/2023 17:06:08 letter sent: Normal Exam ACR BI-RADS Category 2: Benign Finding(s) 3342F
== END ==
PROVIDERS: Family Provider Internal Medicine; PCP Internal Medicine; Referring Provider Registered Nurse; Visit Provider Registered Nurse
DX: N64.4 Mastodynia (principal); Z98.82 Breast implant status
CPT/HCPCS: 77049; A9579

== ENCOUNTER → 2023-05-26 14:41 | Outpatient (CLI) | payer OTHER, SELFPAY ==
--- NOTE | 2023-05-26 | DI.RAD.S_ITS ---
PROCEDURE: XR KNEE LT 3V INDICATIONS: pain and swelling of left knee TECHNIQUE: Three views of the knee were acquired. COMPARISON: None. FINDINGS: Bones: No acute fractures or dislocations. No suspicious bony lesions. No definite joint space narrowing. Soft tissues: No joint effusion. No suspicious soft tissue calcifications. IMPRESSION: No acute osseous abnormality. If the symptoms persist, consider cross sectional imaging such as MRI or CT for further assessment. Approved by: Kyle Guidry M.D. on 05/26/2023 at 15:58
== END ==
PROVIDERS: Family Provider Internal Medicine; PCP Internal Medicine; Referring Provider Internal Medicine; Visit Provider Internal Medicine
DX: M25.562 Pain in left knee (principal); M25.462 Effusion, left knee; M06.9 Rheumatoid arthritis, unspecified
CPT/HCPCS: 73562

== ENCOUNTER → 2023-07-09 10:38 | Outpatient (CLI) | payer OTHER, SELFPAY ==
--- NOTE | 2023-07-09 | DI.MRI.S_ITS ---
PROCEDURE: MR KNEE LT WO CON INDICATIONS: Pain in left knee TECHNIQUE: Noncontrast sagittal PD fast spin echo and T2 fast spin echo with fat saturation, sagittal 3-D FLASH with fat saturation; coronal T1 spin echo and PD fast spin echo with fat saturation, and axial PD fast spin echo with fat saturation through the knee. COMPARISON: [facility], CR, XR KNEE LT 3V, 05/26/2023, 15:03. FINDINGS: Image quality: Excellent. Menisci: Subtle fraying of posterior horn medial meniscus with possible extension to inferior articulating surface concerning for subtle oblique tear in this area. The lateral meniscus is intact. The meniscal root ligaments appear intact. Cruciate ligaments: The anterior cruciate ligament is thickened with intrasubstance T2 hyperintense signal. The posterior cruciate ligament is intact. Medial structures: The medial collateral ligament appears thickened. Visualized portions of the pes anserinus tendons appear normal. No abnormal bursal fluid. Lateral structures: The lateral collateral ligament, long and short heads of the biceps femoris tendon appear intact. The popliteus tendon appears normal; the popliteofibular ligament appears intact. Iliotibial band appears normal. Anterior structures: Distal quadriceps tendinosis at its superior patellar insertion is seen. The patellar tendon is intact. Patellar alignment is normal. No femoral trochlear dysplasia or ventral trochlear prominence. No edema in the infrapatellar fat pad. Bones and cartilage: No bone marrow contusions or fractures. The cartilage of the medial and lateral femorotibial compartments, as well as the patellofemoral compartment, appears normal in thickness. Joint space: There is small knee joint fluid. No Gudino's cyst. Normal appearing synovial plicae are incidentally noted. IMPRESSION: 1. Suggestion of sprain/low-grade intrasubstance partial-thickness tear involving anterior cruciate ligament. No ACL rupture. The PCL is intact. 2. Mild MCL sprain. 3. Questionable signal abnormality in posterior horn of medial meniscus which may represent a very subtle oblique tear in this area extending to inferior articulating surface. No the lateral meniscus is intact. 4. Distal quadriceps tendinosis at its superior patellar insertion. 5. No marrow edema. No fracture or dislocation. Small joint effusion, no gross loose bodies. Dictated by: Tico Garcia M.D. on 07/09/2023 at 16:05 Approved by: Tico Garcia M.D. on 07/09/2023 at 16:25
== END ==
PROVIDERS: Family Provider Internal Medicine; PCP Internal Medicine; Referring Provider Orthopaedic Surgery; Visit Provider Orthopaedic Surgery
DX: S83.412A Sprain of medial collateral ligament of left knee, initial encounter (principal); M25.562 Pain in left knee
CPT/HCPCS: 73721

== ENCOUNTER → 2023-12-20 14:08 | Outpatient (CLI) | payer OTHER, SELFPAY ==
--- NOTE | 2023-12-20 14:10 | DI.RAD.S_ITS ---
PROCEDURE: XR CHEST 2V INDICATIONS: COUGH TECHNIQUE: 2 views of the chest were acquired. COMPARISON: [facility], CR, XR CHEST 2V, 08/26/2020, 19:53. FINDINGS: Surgical changes and devices: None. Lungs and pleura: Lungs are clear. No pleural effusions or pneumothorax. Mediastinum: Mediastinal contours are normal. Heart size is normal. Bones and chest wall: No suspicious bony abnormalities. Soft tissues appear unremarkable. IMPRESSION: No acute pulmonary process. Dictated by: Abril Sloan M.D. on 12/20/2023 at 16:03 Approved by: Abril Sloan M.D. on 12/20/2023 at 16:03
== END ==
PROVIDERS: Family Provider Internal Medicine; PCP Internal Medicine; Referring Provider Internal Medicine; Visit Provider Internal Medicine
DX: R05.1 Acute cough (principal)
CPT/HCPCS: 71046

== ENCOUNTER → 2024-01-24 10:57 | Outpatient (CLI) | payer OTHER, SELFPAY ==
--- NOTE | 2024-01-24 | DI.MG.S_ITS ---
BILATERAL DIGITAL SCREENING MAMMOGRAM 3D/2D WITH CAD WITH AUGMENTATION: 01/24/2024 CLINICAL: Routine screening. Family history of breast cancer. Comparison is made to exams dated: 11/23/2022 mammogram, 11/04/2021 mammogram, and 08/16/2020 mammogram - [facility]. Both breasts are heterogeneously dense, which may obscure small masses (category c / 51-75% glandular tissue). Current study was also evaluated with a Computer Aided Detection (CAD) system. Bilateral breast implants are stable and intact. No significant masses, calcifications, or other findings are seen in either breast. There has been no significant interval change. IMPRESSION: BENIGN There is no mammographic evidence of malignancy. A 1 year screening mammogram is recommended. Future imaging is recommended as follows: 03/31/2024 screening mammogram. Based on the Tyrer Cuzick model (a risk assessment model) the patient's lifetime risk is 11.7% and her 10 year risk is 3.0%. According to the ACR, ACS, and NCCN guidelines, an annual breast MRI exam along with mammogram is recommended if the patient's lifetime risk is 20% or greater. This exam was interpreted at Station ID: [id number]. NOTE: For mammograms, a report in lay terms will be sent to the patient. Approximately 15% of breast malignancies will not be visualized mammographically. In the management of a palpable breast mass, a negative mammogram must not discourage biopsy of a clinically suspicious lesion. Electronically Signed By: Lakisha Vega M.D., Ph.D. eb/anne marie:01/24/2024 16:07:03 letter sent: Normal Exam ACR BI-RADS Category 2: Benign Finding(s) 3342F
== END ==
PROVIDERS: Family Provider Internal Medicine; PCP Internal Medicine; Referring Provider Internal Medicine; Visit Provider Internal Medicine
DX: Z12.31 Encounter for screening mammogram for malignant neoplasm of breast (principal); Z80.3 Family history of malignant neoplasm of breast; R92.333 Mammographic heterogeneous density, bilateral breasts
CPT/HCPCS: 77063; 77067

== ENCOUNTER → 2024-01-26 12:43 | Outpatient (CLI) | payer OTHER, SELFPAY ==
--- NOTE | 2024-01-26 12:44 | DI.CT.S_ITS ---
PROCEDURE: CT SINUS SCREEN WO CON INDICATIONS: Chronic sinusitis TECHNIQUE: Noncontrast 3.0 mm axial images acquired from the frontal sinuses to the mid-sella, with coronal and sagittal reformats. For radiation dose reduction, the following was used: automated exposure control, adjustment of mA and/or kV according to patient size. COMPARISON: None. FINDINGS: Image quality: Excellent. Maxillary Sinuses: No bony remodeling or destruction. Mild mucosal thickening of the left maxillary sinus with small air-fluid level. Right maxillary sinus is clear. Ethmoid Air Cells: No bony remodeling or destruction. Mild mucosal thickening on the right. Sphenoid Sinuses: No bony remodeling or destruction. Sinuses are clear. Frontal Sinuses: No bony remodeling or destruction. Sinuses are clear. Ostiomeatal Complexes: Ostiomeatal complexes are patent. No Genia cells. Miscellaneous: Visualized intra-orbital contents are normal. No shaji bullosa or paradoxical turbinate curvature. Leftward nasal septal deviation with spurring. IMPRESSION: Mild maxillary sinus and ethmoid air cell disease with small air-fluid level in the left maxillary sinus, suggestive of acute sinusitis. Dictated by: Ritchie Aguila M.D. on 01/26/2024 at 13:29 Approved by: Ritchie Aguila M.D. on 01/26/2024 at 13:32
== END ==
PROVIDERS: Family Provider Internal Medicine; PCP Internal Medicine; Referring Provider Internal Medicine; Visit Provider Internal Medicine
DX: J32.8 Other chronic sinusitis (principal)
CPT/HCPCS: 70486

== ENCOUNTER → 2024-04-18 14:15 | Outpatient (CLI) | payer OTHER, SELFPAY ==
--- NOTE | 2024-04-18 14:17 | DI.RAD.S_ITS ---
PROCEDURE: XR ANKLE RT MIN 3V INDICATIONS: Unspecified injury of right ankle, initial encounter TECHNIQUE: 3 views of the ankle were acquired. COMPARISON: [facility], CR, XR ANKLE RT MIN 3V, 04/17/2022, 13:14. FINDINGS: Bones: No fractures or dislocations. Ankle mortise is normally aligned. No suspicious bony lesions. Soft tissues: No tibiotalar joint effusion. Achilles tendon appears normal. IMPRESSION: No acute bony abnormality or significant effusion. Dictated by: Mauri Carr M.D. on 04/19/2024 at 16:04 Approved by: Mauri Carr M.D. on 04/19/2024 at 16:05
== END ==
PROVIDERS: Family Provider Internal Medicine; PCP Internal Medicine; Referring Provider Internal Medicine; Visit Provider Internal Medicine
DX: S99.911A Unspecified injury of right ankle, initial encounter (principal); X58.XXXA Exposure to other specified factors, initial encounter
CPT/HCPCS: 73610

== ENCOUNTER → 2024-08-17 17:31 | Outpatient (ROUT) | payer OTHER, SELFPAY ==
[2024-08-17 18:17] LABS: Influenza A - CEPHEID Flu A NEGATIVE (NEGATIVE); Influenza B - CEPHEID Flu B NEGATIVE (NEGATIVE); Respiratory Syncytial Virus Negative (Negative)
[2024-08-17 18:22] LABS: COVID-19 CEPHEID 4-PLEX PCR Negative (Negative)
== END ==
PROVIDERS: Family Provider Internal Medicine; PCP Internal Medicine; Visit Provider Family Medicine
DX: R50.9 Fever, unspecified (principal)
CPT/HCPCS: 0241U

== ENCOUNTER → 2024-09-07 10:15 | Outpatient (ROUT) | payer OTHER, SELFPAY ==
[2024-09-07 11:02] LABS: Influenza A - CEPHEID Flu A POSITIVE (NEGATIVE); Influenza B - CEPHEID Flu B NEGATIVE (NEGATIVE); Respiratory Syncytial Virus Negative (Negative)
[2024-09-07 11:03] LABS: COVID-19 CEPHEID 4-PLEX PCR Negative (Negative)
== END ==
PROVIDERS: Family Provider Internal Medicine; PCP Internal Medicine; Visit Provider Family Medicine
DX: R05.1 Acute cough (principal); R50.9 Fever, unspecified
CPT/HCPCS: 0241U

== ENCOUNTER → 2024-09-14 10:28 | Outpatient (CLI) | payer OTHER, SELFPAY ==
--- NOTE | 2024-09-14 10:31 | DI.RAD.S_ITS ---
PROCEDURE: XR CHEST 2V INDICATIONS: COUGH TECHNIQUE: 2 views of the chest were acquired. COMPARISON: [facility], CR, XR CHEST 2V, 12/20/2023, 13:44. FINDINGS: Heart, mediastinum and pulmonary vascular: Heart is normal in size and configuration. Mediastinum is unremarkable. Pulmonary vascular is normal. Lungs: Small infiltrate has developed in the posterior left lower lobe Pleural spaces: Normal-no effusions or pneumothorax. Bones and soft tissues: Normal IMPRESSION: Small posterior left lower lobe pneumonia Dictated by: Mauri Carr M.D. on 09/15/2024 at 11:56 Approved by: Mauri Carr M.D. on 09/15/2024 at 11:57
--- NOTE | 2024-09-14 10:32 | DI.RAD.S_ITS ---
PROCEDURE: XR CERVICAL SPINE 2V OR 3V INDICATIONS: BACK PAIN TECHNIQUE: Five views of the cervical spine were acquired. COMPARISON: [facility], CR, XR CERVICAL SPINE 4V OR 5V, 12/11/2022, 11:34. FINDINGS: Cervical spine curvature and alignment: Normal. Physiologic motion between flexion extension Bones: There are no osseous abnormalities. Disc spaces: Severe narrowing of the C4-5 disc space likely reflects degeneration. Other disc spaces are normal Soft tissues: No soft tissue swelling, calcification or mass. IMPRESSION: Severe C4-5 disc space narrowing likely degeneration. No change Dictated by: Mauri Carr M.D. on 09/15/2024 at 11:21 Approved by: Mauri Carr M.D. on 09/15/2024 at 11:22
== END ==
LOC: RAD 10:30
PROVIDERS: Family Provider Internal Medicine; PCP Family Medicine; Referring Provider Neurological Surgery; Visit Provider Neurological Surgery
DX: M48.02 Spinal stenosis, cervical region (principal); J18.9 Pneumonia, unspecified organism; M54.2 Cervicalgia; R05.2 Subacute cough
CPT/HCPCS: 71046; 72050

== ENCOUNTER → 2024-12-07 07:29 | Outpatient (CLI) | payer OTHER, SELFPAY ==
--- NOTE | 2024-12-07 07:31 | DI.US.S_ITS ---
PROCEDURE: US PELVIC COMPLETE INDICATIONS: pelvic pain TECHNIQUE: Real-time scanning was performed of the pelvic organs, with image documentation. Additional endovaginal scanning was necessary due to incomplete visualization of the adnexal and endometrial structures by transabdominal scanning. COMPARISON: None. FINDINGS: Uterus: Uterus is anteverted and normal in size at 6.0 x 4.1 x 2.8 cm. The myometrium is homogeneous. The endometrium measures 2 mm combined thickness. scar along the anterior margin. Ovaries: The right ovary measures 1.8 x 1.1 x 0.9 cm, with a calculated ovarian volume of 1 cc. The left ovary measures 1.7 x 1.1 x 0.8 cm, with a calculated ovarian volume of 1 cc. The ovaries have a normal sonographic appearance. Less than 12 follicles can be seen in each ovary. No adnexal masses are seen. Other: No pathologic free abdominal or pelvic fluid. IMPRESSION: Unremarkable pelvic ultrasound. We strive to produce accurate, complete, and clear reports of imaging services. To assist us in improving patient care, this report was composed using standard report templates and voice recognition software. Therefore, it may contain abnormal punctuation, insertions and/or omissions. Occasional wrong-word or sound-alike substitutions may occur. Though we review the report and make efforts to correct it, we do recommend that the report be read carefully in proper context to recognize any text inaccuracies. Dictated by: Quang Moon M.D. on 12/07/2024 at 16:37 Approved by: Quang Moon M.D. on 12/07/2024 at 16:38
== END ==
PROVIDERS: Family Provider Internal Medicine; PCP Registered Nurse; Referring Provider Registered Nurse; Visit Provider Registered Nurse
DX: R10.2 Pelvic and perineal pain (principal)
CPT/HCPCS: 76830; 76856

== ENCOUNTER → 2025-08-06 08:10 | Outpatient (CLI) | payer OTHER, SELFPAY ==
--- NOTE | 2025-08-06 08:12 | DI.US.S_ITS ---
MM diagnostic mammo implant BI, US breast LT limited: 08/06/2025 BI-RADS: 2 CLINICAL: 54-year old female for bilateral diagnostic mammogram and left diagnostic breast ultrasound. Tyrer-Cuzick lifetime risk of 24.9%. Current reported family history of breast cancer: maternal grandmother and mother. The patient reports pain (3 months) in the left nipple and a tugging sensation in the left axilla. The patient has bilateral implants. PRIOR EXAMS: 01/24/2024, 03/31/2023, 11/23/2022, 11/04/2021, 08/16/2020, 07/13/2019. MAMMOGRAPHY TECHNIQUE: 2D and 3D (tomosynthesis) digital mammographic views obtained, with additional images as needed for full coverage. Current study was also evaluated with a Computer Aided Detection (CAD) system. ULTRASOUND TECHNIQUE: Left targeted breast ultrasound of the area of clinical interest and the axilla was performed with image documentation. Real-time pickard scale and color doppler imaging of the area of clinical interest was performed with image documentation. DENSITY C. The breasts are heterogeneously dense, which may obscure small masses. IMPLANTS Right: Breast implant present on the right. Left: Breast implant present on the left. MAMMOGRAPHY FINDINGS Right: There are no suspicious masses, calcifications, or other findings in the breast. Left: Central, Retroareolar, Far Anterior depth: There is no suspicious mammographic finding to account for concern by the patient of nipple symptoms. No suspicious mass, asymmetry, microcalcification, or other abnormality seen. Left: MLO only, Axilla: There is no suspicious mammographic finding to account for concern by the patient. ULTRASOUND FINDINGS Left: Central, Retroareolar: There is no sonographic abnormality to account for concern by the patient of nipple symptoms. Left: Axilla: There is no sonographic abnormality to account for concern by the patient. IMPRESSION: Right * No evidence of malignancy with benign findings. Left * No evidence of malignancy. RECOMMENDATIONS Bilateral * Annual screening mammography. COMMENTS: Findings and recommendations were conveyed to the patient during today's evaluation. According to the Tyrer-Cuzick Risk Assessment Model, based on the information provided your patient has a greater than 20% lifetime risk for developing breast cancer. Consider supplemental screening with breast MRI and participation in a high-risk screening program. OVERALL ASSESSMENT CATEGORY BI-RADS-2: Benign. The [employer] recommends annual screening mammography beginning at age 40 for women with average risk of breast cancer. ELECTRONICALLY SIGNED: Aicha Fernandez M.D. on 08/06/2025 at 09:19:15 AM PT Interpreting Station ID: [id number]
== END ==
LOC: MAMMO 08:11
PROVIDERS: Family Provider Internal Medicine; PCP Registered Nurse; Referring Provider Registered Nurse; Visit Provider Registered Nurse
DX: N64.4 Mastodynia (principal); R92.333 Mammographic heterogeneous density, bilateral breasts; Z98.82 Breast implant status; Z80.3 Family history of malignant neoplasm of breast
CPT/HCPCS: 76642; 77066; G0279